=== PATIENT | male | born 1990 | race Caucasian/White ===

== ENCOUNTER → 2019-07-23 | Outpatient (REF) | payer OTHER ==
[2019-07-23 18:11] LABS: INFLUENZA A AMPLIFICATION NEGATIVE (NEGATIVE); INFLUENZA B AMPLIFICATION NEGATIVE (NEGATIVE)
== END ==
LOC: M LAB REF 17:30
PROVIDERS: ATTEND Physician Assistant Medical
DX: R50.9 Fever, unspecified (principal)